=== PATIENT | female | born 1985 | race Two or more races ===

== ENCOUNTER → 2020-12-15 12:35 | Outpatient (CLI) | payer BC, SELFPAY ==
[2020-12-15 09:28] VITALS: BMI 35.9
[2020-12-15 15:09] LABS: Amphetamine Urine VISTA NEGATIVE (<1000 ng/mL); Barbiturate Urine VISTA NEGATIVE (< 200 ng/mL); Benzodiazepine Urine VISTA NEGATIVE (< 200 ng/mL); Cocaine Urine VISTA NEGATIVE (< 300 ng/mL); Ecstacy Urine VISTA NEGATIVE (< 500 ng/mL); Methadone Urine VISTA NEGATIVE (< 300 ng/mL); PCP Urine VISTA NEGATIVE (< 25 ng/mL); THC Urine VISTA NEGATIVE (< 50 ng/mL); Vista UDS pH Range 6
[2020-12-18 12:08] LABS: Chlamydia By Nucleic Acid AMP Negative (Negative)
[2020-12-18 14:43] LABS: Gonococcus By Nucleic Acid AMP Negative (Negative)
[2020-12-21 15:05] LABS: HPV APTIMA, High Risk Negative (Negative)
== END ==
PROVIDERS: Referring Provider Obstetrics & Gynecology; Visit Provider Obstetrics & Gynecology
DX: Z12.4 Encounter for screening for malignant neoplasm of cervix (principal); O09.90 Supervision of high risk pregnancy, unspecified, unspecified trimester
CPT/HCPCS: 80307; 87086; 87088; 87491; 87591; 87624; 88175; G0145

== ENCOUNTER → 2021-01-12 11:00 | Outpatient (CLI) | payer BC, SELFPAY ==
[2020-12-15 09:28] VITALS: BMI 35.9
[2021-01-12 11:33] LABS: Absolute Lymphocyte Count 1.84 X10^3/uL (0.83-4.51); Absolute Neutrophil Count 7.3 X10^3/uL (2.0-7.7); Basophil# 0.04 X10^3/uL; Basophil% 0.4 % (0-1); Eosinophil# 0.28 X10^3/uL; Eosinophils% 2.8 % (0-5); Hematocrit 39.3 % (37-47); Hemoglobin 12.9 g/dL (12.0-15.0); Lymphocyte # 1.84 X10^3/ul (4.0); Lymphocyte % 18.5 % (19-41); Mean Corp Hgb Conc 32.8 g/dL (32-36); Mean Corpuscular Hgb 30.9 pg (27.0-32.0); Mean Corpuscular Volume 94.2 fL (81-99); Mean Platelet Vol. 11.2 fl (6.2-12.0); Monocyte# 0.47 X10^3/uL; Monocyte% 4.7 % (0-10); NRBC Flagged by Analyzer 0 % (0-5); Neutrophil # 7.28 X10^3/uL (2.7-7.7); Neutrophil % 73.2 % (47-70); Platelet Count 193 K/mm3 (150-450); RBC Distribution Width CV 12.7 % (11.6-14.6); RBC Distribution Width SD 43.7 fl (35.1-43.9); Red Blood Count 4.17 M/mm3 (4.2-5.4)
[2021-01-12 11:41] LABS: Glucose Challenge Gest 1H 50g 148 mg/dL (70-140)
[2021-01-12 12:30] LABS: NATERA MAILED SPECIMEN
[2021-01-12 13:07] LABS: HIV - WCH Non-Reactive (Nonreactive); Hepatitis B Surface Antigen Non-Reactive (Nonreactive); Hepatitis C Antibody Non-Reactive (Nonreactive); Rubella IgG Reactive (Nonreactive)
== END ==
PROVIDERS: Referring Provider Obstetrics & Gynecology; Visit Provider Obstetrics & Gynecology
DX: Z34.81 Encounter for supervision of other normal pregnancy, first trimester (principal); Z31.430 Encounter of female for testing for genetic disease carrier status for procreative management; O09.90 Supervision of high risk pregnancy, unspecified, unspecified trimester; Z86.32 Personal history of gestational diabetes
CPT/HCPCS: 36415; 82950; 85025; 86703; 86762; 86803; 86850; 86900; 86901; 87340

== ENCOUNTER → 2021-01-17 10:03 | Outpatient (CLI) | payer BC, SELFPAY ==
[2020-12-15 09:28] VITALS: BMI 35.9
[2021-01-17 11:08] LABS: Glucose GTT-Gestation. Fasting 90 mg/dL (<105)
[2021-01-17 11:50] LABS: Glucose GTT-Gestational 1 Hr 169 mg/dL (<190)
[2021-01-17 13:30] LABS: Glucose GTT-Gestational 2 Hr 118 mg/dL (<165)
[2021-01-17 14:03] LABS: Glucose GTT-Gestational 3 Hr 55 L (<145)
== END ==
PROVIDERS: Referring Provider Nurse Practitioner Women's Health; Visit Provider Nurse Practitioner Women's Health
DX: O09.299 Supervision of pregnancy with other poor reproductive or obstetric history, unspecified trimester (principal); Z86.32 Personal history of gestational diabetes; Z3A.00 Weeks of gestation of pregnancy not specified
CPT/HCPCS: 36415; 82951; 82952

== ENCOUNTER → 2021-05-04 11:47 | Outpatient (CLI) | payer BC, SELFPAY ==
[2021-04-13 11:02] VITALS: BMI 35.3
[2021-05-04 12:56] LABS: Absolute Lymphocyte Count 2.35 X10^3/uL (0.83-4.51); Basophil# 0.04 X10^3/uL; Basophil% 0.3 % (0-1); Eosinophils% 1.5 % (0-5); Hematocrit 34.2 % (37-47); Hemoglobin 11.6 g/dL (12.0-15.0); Lymphocyte # 2.35 X10^3/ul (0.83-4.51); Lymphocyte % 17.6 % (19-41); Mean Corp Hgb Conc 33.9 g/dL (32-36); Mean Corpuscular Hgb 32.1 pg (27.0-32.0); Mean Corpuscular Volume 94.7 fL (81-99); Mean Platelet Vol. 10.7 fl (6.2-12.0); Monocyte# 0.62 X10^3/uL; Monocyte% 4.6 % (0-10); NRBC Flagged by Analyzer 0 % (0-5); Neutrophil # 10.04 X10^3/uL (2.7-7.7); Neutrophil % 75.3 % (47-70); Platelet Count 223 K/mm3 (150-450); RBC Distribution Width CV 13.6 % (11.6-14.6); RBC Distribution Width SD 47.3 fl (35.1-43.9); Red Blood Count 3.61 M/mm3 (4.2-5.4); White Blood Count 13.3 K/mm3 (4.4-11.0)
[2021-05-04 13:08] LABS: Glucose Challenge Gest 1H 50g 144 mg/dL (70-140)
== END ==
PROVIDERS: Obstetrics & Gynecology; Referring Provider Obstetrics & Gynecology; Visit Provider Obstetrics & Gynecology
DX: O09.90 Supervision of high risk pregnancy, unspecified, unspecified trimester (principal); Z13.1 Encounter for screening for diabetes mellitus; Z3A.00 Weeks of gestation of pregnancy not specified
CPT/HCPCS: 36415; 82950; 85025

== ENCOUNTER → 2021-05-09 10:01 | Outpatient (CLI) | payer BC, SELFPAY ==
[2021-04-13 11:02] VITALS: BMI 35.3
[2021-05-09 12:02] LABS: Glucose GTT-Gestational 1 Hr 179 mg/dL (<190)
[2021-05-09 12:12] LABS: Glucose GTT-Gestation. Fasting 90 mg/dL (<105)
[2021-05-09 13:21] LABS: Glucose GTT-Gestational 2 Hr 123 mg/dL (<165)
[2021-05-09 14:05] LABS: Glucose GTT-Gestational 3 Hr 87 L (<145)
== END ==
PROVIDERS: Visit Provider Obstetrics & Gynecology
DX: O09.299 Supervision of pregnancy with other poor reproductive or obstetric history, unspecified trimester (principal); Z86.32 Personal history of gestational diabetes; Z3A.00 Weeks of gestation of pregnancy not specified
CPT/HCPCS: 36415; 82951; 82952

== ENCOUNTER → 2021-07-01 11:14 | Outpatient (CLI) | payer BC, SELFPAY ==
--- NOTE | 2021-07-01 11:16 | US_ITS ---
STUDY: SECOND AND THIRD TRIMESTER OBSTETRICAL ULTRASOUND - LIMITED REASON FOR EXAM: Female, 36 years old growth LMP: 10/17/2020. PRIOR ULTRASOUND: None. TECHNIQUE: Transabdominal TECHNICAL QUALITY: Adequate. FINDINGS: There is a single intrauterine fetus. The fetus is in a cephalic presentation. There is demonstrated cardiac activity with a heart rate of 153 bpm. There is a normal amniotic fluid volume. The largest amniotic fluid pocket measures 8.3 cm. The amniotic fluid index (POLLO) is 23.3 cm. The placenta is posterior in location and is not low lying. There are Grade 3 placental changes. The cervical length was not measured due to the head positioning. BIOMETRY: BPD: 9.35 cm: 38 weeks, 1 days HC: 33.39 cm: 38 weeks, 2 days AC: 35.41 cm: 39 weeks, 3 days FL: 7.27 cm: 37 weeks, 2 days Age by LMP: 36 weeks, 5 days. CESIA by LMP: 07/24/2021. age by current US: 38 weeks, 2 days. CESIA by current US: 07/13/2021. Estimated weight: 3531 grams, +/- 516 grams, 93 percentile. US/OB Limited With Biometrics IMPRESSION: Single live uterine gestation with a mean gestational age of 38 weeks and 2 days. Electronically Signed: Braden Peralta MD at 15:12 EDT , Service support ,
== END ==
PROVIDERS: Referring Provider Obstetrics & Gynecology; Visit Provider Obstetrics & Gynecology
DX: O09.299 Supervision of pregnancy with other poor reproductive or obstetric history, unspecified trimester (principal); Z3A.00 Weeks of gestation of pregnancy not specified
CPT/HCPCS: 76816; 87081

== ENCOUNTER → 2021-07-08 11:38 | Outpatient (CLI) | payer BC, SELFPAY | PROVIDERS: Referring Provider Obstetrics & Gynecology; Visit Provider Obstetrics & Gynecology | DX: Z34.93 Encounter for supervision of normal pregnancy, unspecified, third trimester (principal) | CPT/HCPCS: 87635; U0005; U0003 ==

== ENCOUNTER 2021-07-12 08:30 | Inpatient (IN) | payer BC, SELFPAY ==
[2021-07-12] VITALS (73 sets, daily range): BP systolic 92–141; BP diastolic 51–89; PULSE 63–99; TEMP 36.3–37.2; O2SAT 94–100; BMI 34.8
[2021-07-12 08:28] LABS: ROM Internal Control Test YES-OK TO RESULT pt. (Internal QC)
[2021-07-12 08:31] LABS: ROM Patient Test POSITIVE (Negative)
[2021-07-12] MEDS: Lactated Ringers 1,000 ML 50 ML IV (09:10)
[2021-07-12 09:26] LABS: Absolute Lymphocyte Count 1.58 X10^3/uL (0.83-4.51); Absolute Neutrophil Count 11.1 X10^3/uL (2.0-7.7); Basophil# 0.03 X10^3/uL; Basophil% 0.2 % (0-1); Eosinophil# 0.11 X10^3/uL; Eosinophils% 0.8 % (0-5); Hematocrit 35.1 % (37-47); Hemoglobin 11.8 g/dL (12.0-15.0); Lymphocyte # 1.58 X10^3/ul (0.83-4.51); Lymphocyte % 11.6 % (19-41); Mean Corp Hgb Conc 33.6 g/dL (32-36); Mean Corpuscular Hgb 31.6 pg (27.0-32.0); Mean Corpuscular Volume 93.9 fL (81-99); Mean Platelet Vol. 11.2 fl (6.2-12.0); Monocyte% 5.2 % (0-10); NRBC Flagged by Analyzer 0 % (0-5); Neutrophil # 11.05 X10^3/uL (2.7-7.7); Neutrophil % 81.4 % (47-70); Platelet Count 220 K/mm3 (150-450); RBC Distribution Width CV 13.9 % (11.6-14.6); RBC Distribution Width SD 47.4 fl (35.1-43.9); Red Blood Count 3.74 M/mm3 (4.2-5.4); White Blood Count 13.6 K/mm3 (4.4-11.0)
[2021-07-12 10:09] LABS: Syphilis Antibodies Non-reactive
[2021-07-12] MEDS: Oxytocin 30 units/NS 500 ml 30 UNITS/500 ML IV.SOLN IV (11:50)
[2021-07-12] MEDS: Lactated Ringers 500 ML 999 ML IV ×2 (13:04→20:44)
[2021-07-12] MEDS: fentaNYL-bupivacaine (epidural) 100 ML BAG EPIDURAL ×2 (13:54→18:19)
[2021-07-12] MEDS: Lactated Ringers 1,000 ML 200 ML IV (19:12)
[2021-07-12] MEDS: Oxytocin 30 units/NS 500 ml 30 UNITS/500 ML IV.SOLN 334 UNITS IV (23:51)
--- NOTE | 2021-07-12 23:55 | HP.PCM.OB_ITS ---
HPI - General General Date of Admission: 07/12/21 HPI Narrative JUNIOR GRIFFITH, is a 36 F who presents with clear SROM 2 cm dilated, after several hours still 2 cm dilated. Maternal Data Information CESIA Calculator Estimated Delivery Date Method Current WG Current Estimate 07/24/21 LMP (Certain) 38w 2d Other Estimates 07/24/21 Ultrasound #1 38w 2d PFSH PFSH Medical History Abnormal Pap smear of cervix H/O gestational diabetes in prior , currently Home Medications multivitamin no.47-iron fum 27 mg-folate no.1 1 mg-dha 300 mg capsule 1 cap PO DAILY 12/07/20 [History Last Taken 07/11/21 20:00] famotidine 40 mg tablet 40 mg PO BID #60 tab 03/16/21 [Rx Last Taken 07/11/21 20:00] Allergy/AdvReac Type Severity Reaction Status Date / Time No Known Allergies Allergy Verified 07/08/21 11:25 Family History Mother Myocardial infarction Father Myocardial infarction Surgical History H/O LEEP Social History household members: family housing: house number of children: 2 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 Date Name GA/Weeks Outcome Route Bth Weight Gen Labor Lgth Anesthesia Del Locatn Provider FOB 05/24/15 Michael 41 live - full term vacuum 8lbs 5oz Male 12 hours epidural [facility] Ej 11/02/16 Fredo 40 live - full term 8lbs Male 12 lay rs epidural [facility] Delivery Date: 05/24/15 severe shoulder dystocia; 2nd degree laceration Rebecca Abdullahi Delivery Date: 11/02/16 GDM Rebecca Abdullahi Visit Details Expected Delivery Route/Plan IOL at 39 for hx shoulder dystocia Labor Preferences- CB/BF classes: no labor support person: Ej labor intervention preferences: wants frequent position changes during labor, open to standard interventions pain management options preferred: epidural - but would like lower dose cut cord/dad catch: maybe cord - almost fainted with first delivery : breast PP control planned: IUD at 6w PP visit discussed possible routes of delivery and associated risks: [] special requests: [] Plans covid vaccine: vaccinated flu vaccine: 07/01 tdap vaccine: given rhogam: na LARC form signed: declined. movement and labor precautions reviewed. Problem list reviewed and updated with the most current plan of care details and appropriate orders placed. Relevant counseling for the gestational age provided. Continue routine care and follow up unless otherwise noted in visit notes/problem list details OB Flowsheet Initial Weight: 200 lb Date -?-?-?-?-?-?-?-?-?-?-?-?- EGA Weight BP Urine Prot -?-?-?-?--?-?-?-?-?-?-?-?- Glucose FHR FuHt Pres Dilation -?-?-?-?-?-?-?-?-?-?--?-?- Effaced St Visit Note 12/15/20 -?-?-?-?-?-?-?-?-?-?-?-?- 8w 3d 203 lb (+3 lb) 128/78 -?-?-?-?-?-?-?-?-?-?-?-?- 185 -?-?-?-?-?-?-?-?-?-?-?-?- GP - CRL 17mm co nsistent with LMP. 01/19/21 -?-?--?-?-?-?-?-?-?-?-?-?- 13w 3d 200 lb 8 oz (+8 oz) 100/68 -?-?-?-?-?-?-?-?-?-?-?-?- 168 -?-?-?-?-?-?-?-?-?-?-?-?- MH-Brief US with active IUP. No VB, LOF. Heartburn persists with Pepcid-med list reviewed. Sched CL US at 16 wk [id number] 02/17/21 -?-?-?-?-?-?-?-?-?-?-?-?- 17w 4d 200 lb (+0 oz) 118/77 Negative -?-?-?-?-?-?-?-?-?-?-?-?- Negative 145 18 -?-?-?-?-?-?-?-?-?-?-?-?- SM- no vb lof fu anatomy ordered 03/16/21 -?-?-?-?-?-?-?-?-?-?-?-?- 21w 3d 199 lb 6 oz (-10 oz) 138/72 Negative -?-?-?-?-?-?-?-?-?-?-?-?- Negative 150 21 -?-?-?-?-?-?-?-?-?-?-?-?- GP - no LOF, VB, DFM, ctx. Having boy #3. Thinking of Jerrell Naqvi for name. Pepcid increased. 04/13/21 -?-?-?-?-?-?-?-?-?-?-?-?- 25w 3d 200 lb (+0 oz) 120/70 Negative -?-?-?-?-?-?-?-?-?-?-?-?- Negative 150 25 -?-?-?-?-?-?-?-?-?-?-?-?- GP - no LOF, VB, DFM, ctx. Discussed repeat 3h GCT. 05/12/21 -?-?-?-?-?-?-?-?-?-?-?-?- 29w 4d 195 lb 4 oz (-4 lb 12 oz) 116/70 Negative -?-?-?-?-?-?-?-?-?-?-?-?- Negative 135 29 -?-?-?-?-?-?-?-?-?-?-?-?- GP - no LOF, VB, DFM, ctx. Passed 3h GCT. LARC form signed. TDAP given. 05/27/21 -?-?-?-?-?-?-?-?-?-?-?-?- 31w 5d 197 lb (-3 lb) 116/74 Negative -?-?-?-?-?-?-?-?-?-?-?-?- Negative 140 32 -?-?-?-?-?-?-?-?-?-?-?-?- SM- no vb lof go od fm no reuglar ctx 06/10/21 -?-?-?-?-?-?-?-?-?-?-?-?- 33w 5d 197 lb 2 oz (-2 lb 14 oz) 118/78 Negative -?-?-?-?-?-?-?-?-?-?-?-?- Negative 130 33 -?-?-?-?-?-?-?-?-?-?-?-?- GP - no LOF, VB, DFM, ctx. Discussed growth at 36w due to hx of shoulder dystocia 06/23/21 -?-?-?-?-?-?-?-?--?-?-?-?- 35w 4d 199 lb 2 oz (-14 oz) 116/72 Negative -?-?-?-?-?-?-?-?-?-?-?-?- Negative 135 36 -?-?-?-?-?-?-?-?-?-?-?-?- SM no vb lof goo d fm some irregular paisn and nausea, nothing persistent 07/01/21 -?-?-?-?-?-?-?-?-?-?-?-?- 36w 5d 203 lb (+3 lb) 130/82 Negative -?-?-?-?-?-?-?-?-?-?-?-?- Negative 155 37 Cephalic 1 -?-?-?-?-?-?-?-?-?-?-?-?- 50 -2 GP - no LO F, VB, dFM, ctx. Growth US scheduled for today. GBS done. 07/08/21 -?-?-?-?-?-?-?-?-?-?-?-?- 37w 5d 206 lb 4 oz (+6 lb 4 oz) 130/86 Negative -?-?-?-?-?-?-?-?-?-?-?-?- Negative 140 38 Cephalic 2 -?-?-?-?-?-?-?-?-?-?-?-?- 50 -2 GP - no LO F, VB, DFM, ctx. IOL scheduled for 07/17 due to hx shoulder dystocia and suspected macrosomia 07/12/21 -?-?-?-?-?-?-?-?-?-?-?-?- 38w 2d 196 lb 10.437 oz (-3 lb 5.563 oz) 112/65 108/69 107/54 125/81 131/82 137/89 141/84 132/82 119/74 133/64 108/59 105/59 95/52 92/51 112/68 113/74 112/74 117/76 117/74 117/61 129/73 119/73 130/69 132/78 113/61 103/58 108/56 119/66 117/62 108/58 126/81 111/70 126/70 108/68 -?-?-?-?-?-?-?--?-?-?-?-?- -?-?-?-?-?-?-?-?-?-?-?-?- NST FHR Rate Baby A Baseline: 140 Variability:: Moderate Accelerations:: 15 x 15 Decelerations:: None NST Reactive:: Yes FHR Category:: Category I Uterine Activity:: q3-5 ROS Constitutional Constitutional: Reports systems reviewed and no addt'l complaints, except as documented ENT HEENT: Reports systems reviewed and no addt'l complaints, except as documented Cardiovascular Cardiovascular: Reports systems reviewed and no addt'l complaints, except as documented Respiratory/Chest Respiratory/Chest: Reports systems reviewed and no addt'l complaints, except as documented Gastrointestinal Gastrointestinal: Reports systems reviewed and no addt'l complaints, except as documented and nausea; Denies abdominal pain Genitourinary Genitourinary: Reports systems reviewed and no addt'l complaints, except as documented, contractions Details: present and frequency (regular ) and movement Details: present Musculoskeletal Musculoskeletal: Reports systems reviewed and no addt'l complaints, except as documented Integumentary Integumentary: Reports as per HPI Neurologic Neurologic: Reports systems reviewed and no addt'l complaints, except as documented Endocrine Endocrinology: Reports systems reviewed and no addt'l complaints, except as documented Vital Signs Vital Signs Vital Signs: 07/12/21 08:22 07/12/21 08:23 07/12/21 10:32 Temperature 97.7 F L 97.3 F L Temperature Source Temporal Temporal Pulse Rate 82 89 Blood Pressure 112/65 108/69 BP Systolic 112 108 BP Diastolic 65 69 Pulse Ox 98 07/12/21 11:16 07/12/21 11:53 07/12/21 11:54 Temperature 97.7 F L 99.0 F Temperature Source Temporal Temporal Pulse Rate 86 Blood Pressure 107/54 L BP Systolic 107 BP Diastolic 54 Pulse Ox 07/12/21 12:48 07/12/21 13:35 07/12/21 13:40 Temperature 97.5 F L Temperature Source Temporal Pulse Rate 81 81 88 Blood Pressure 125/81 H BP Systolic 125 BP Diastolic 81 Pulse Ox 99 99 07/12/21 13:41 07/12/21 13:45 07/12/21 13:47 Temperature Temperature Source Pulse Rate 86 90 98 Blood Pressure 131/82 H 137/89 H BP Systolic 131 137 BP Diastolic 82 89 Pulse Ox 100 07/12/21 13:50 07/12/21 13:52 07/12/21 13:55 Temperature Temperature Source Pulse Rate 99 87 86 Blood Pressure 141/84 H BP Systolic 141 BP Diastolic 84 Pulse Ox 99 99 07/12/21 13:57 07/12/21 14:00 07/12/21 14:01 Temperature 97.5 F L Temperature Source Pulse Rate 85 85 86 Blood Pressure 132/82 H 119/74 BP Systolic 132 119 BP Diastolic 82 74 Pulse Ox 98 07/12/21 14:05 07/12/21 14:06 07/12/21 14:10 Temperature Temperature Source Pulse Rate 82 88 84 Blood Pressure 133/64 H BP Systolic 133 BP Diastolic 64 Pulse Ox 94 98 07/12/21 14:12 07/12/21 14:15 07/12/21 14:17 Temperature Temperature Source Pulse Rate 80 80 75 Blood Pressure 108/59 L 105/59 L BP Systolic 108 105 BP Diastolic 59 59 Pulse Ox 97 07/12/21 14:20 07/12/21 14:25 07/12/21 14:30 Temperature Temperature Source Pulse Rate 81 75 90 Blood Pressure BP Systolic BP Diastolic Pulse Ox 98 97 97 07/12/21 14:35 07/12/21 14:40 07/12/21 14:45 Temperature Temperature Source Pulse Rate 67 69 72 Blood Pressure BP Systolic BP Diastolic Pulse Ox 96 96 95 07/12/21 14:49 07/12/21 14:50 07/12/21 14:55 Temperature Temperature Source Pulse Rate 72 67 76 Blood Pressure 95/52 L BP Systolic 95 BP Diastolic 52 Pulse Ox 95 96 07/12/21 15:00 07/12/21 15:05 07/12/21 15:10 Temperature Temperature Source Pulse Rate 65 69 76 Blood Pressure BP Systolic BP Diastolic Pulse Ox 94 96 96 07/12/21 15:15 07/12/21 15:19 07/12/21 15:20 Temperature Temperature Source Pulse Rate 69 68 65 Blood Pressure 92/51 L BP Systolic 92 BP Diastolic 51 Pulse Ox 96 95 07/12/21 15:25 07/12/21 15:30 07/12/21 15:42 Temperature 97.3 F L Temperature Source Temporal Pulse Rate 72 77 Blood Pressure BP Systolic BP Diastolic Pulse Ox 98 97 07/12/21 15:48 07/12/21 16:18 07/12/21 16:48 Temperature 97.5 F L Temperature Source Temporal Pulse Rate 77 71 68 Blood Pressure 112/68 113/74 112/74 BP Systolic 112 113 112 BP Diastolic 68 74 74 Pulse Ox 07/12/21 16:50 07/12/21 17:18 07/12/21 17:47 Temperature Temperature Source Pulse Rate 63 75 Blood Pressure 117/76 117/74 BP Systolic 117 117 BP Diastolic 76 74 Pulse Ox 98 07/12/21 18:14 07/12/21 18:18 07/12/21 19:26 Temperature 97.8 F Temperature Source Temporal Pulse Rate 77 71 82 Blood Pressure 117/61 129/73 H BP Systolic 117 129 BP Diastolic 61 73 Pulse Ox 99 100 07/12/21 19:27 07/12/21 20:02 07/12/21 20:07 Temperature 98.2 F Temperature Source Temporal Pulse Rate 86 85 Blood Pressure 119/73 BP Systolic 119 BP Diastolic 73 Pulse Ox 100 100 07/12/21 20:08 07/12/21 20:12 07/12/21 20:17 Temperature Temperature Source Pulse Rate 86 83 Blood Pressure 130/69 H 132/78 H BP Systolic 130 132 BP Diastolic 69 78 Pulse Ox 100 100 07/12/21 20:18 07/12/21 20:22 07/12/21 20:27 Temperature Temperature Source Pulse Rate 85 85 81 Blood Pressure 113/61 BP Systolic 113 BP Diastolic 61 Pulse Ox 100 100 07/12/21 20:29 07/12/21 20:32 07/12/21 20:51 Temperature 98.1 F Temperature Source Pulse Rate 81 74 Blood Pressure 103/58 L 108/56 L BP Systolic 103 108 BP Diastolic 58 56 Pulse Ox 99 07/12/21 21:30 07/12/21 21:50 07/12/21 21:51 Temperature 97.7 F L Temperature Source Temporal Pulse Rate 80 75 83 Blood Pressure 119/66 117/62 BP Systolic 119 117 BP Diastolic 66 62 Pulse Ox 99 98 07/12/21 21:54 07/12/21 21:56 07/12/21 22:00 Temperature Temperature Source Pulse Rate 76 83 82 Blood Pressure 108/58 L 126/81 H BP Systolic 108 126 BP Diastolic 58 81 Pulse Ox 99 07/12/21 23:04 07/12/21 23:06 07/12/21 23:26 Temperature 98.3 F Temperature Source Temporal Pulse Rate 70 67 82 Blood Pressure 111/70 126/70 H BP Systolic 111 126 BP Diastolic 70 70 Pulse Ox 99 100 Weight Weight: 196 lb 10.437 oz Body Mass Index (BMI) 34.8 Physical Exam Const alert, oriented x3 and healthy appearing Constitutional Narrative: uncomfortable with contractions HEENT normocephalic and moist oral mucous membranes Head and Scalp: atraumatic Neck full ROM, no lymphadenopathy, supple and thyroid normal General: trachea midline Thyroid: thyroid normal Lymph Lymphatic: no lymphadenopathy noted Chest inspection of chest normal Resp normal respiratory effort Cardio regular rate GI normal to inspection, nondistended, normoactive bowel sounds, soft to palpation and non-tender Inspection: gravid external exam normal Bimanual Exam - Vag & Uterus: uterus non-tender Manual OB Exam: estimated gestational size appropriate, presentation cephalic, dilated, effaced and station Extremity normal to inspection General Extremity: Negative for edema Skin no rashes or lesions noted Neuro deep tendon reflexes 2+ bilaterally Motor Exam: strength 5/5 throughout and clonus absent Psych mental status grossly normal Labs Labs Labs: Blood Type O POSITIVE Antibody Screen NEGATIVE Hct 35.1 % (37-47) L Hgb 11.8 g/dL (12.0-15.0) L Obstetrics US Syphilis Total Ab Non-reactive Rubella IgG Antibody Reactive (Nonreactive) Hep Bs Antigen Non-Reactive (Nonreactive) Neisseria gonorrhoeae DNA (JEFFERY) Negative (Negative) HIV 1&2 Antibody Non-Reactive (Nonreactive) Glucose 1 Hr 50 gm 144 mg/dL (70-140) H Assessment & Plan (1) Macrosomia: COMMENT: 93rd% (2) Smoking (tobacco) complicating , unspecified trimester: COMMENT: quit. (3) H/O shoulder dystocia in prior , currently : COMMENT: with 1st- 8# 5 ounces, 2nd without SD was 8 lbs. recommend IOL 39 weeks (4) Supervision of high risk , antepartum: COMMENT: PRR CESIA: 07/24/2021 Boy! Jerrell? PC: Fredo Rodriguez Spouse: Ej (5) H/O LEEP: COMMENT: 2019. Plan CL screening q2w starting at 16w.03/24 CL nl (6) H/O gestational diabetes in prior , currently : COMMENT: Normal 3hr GTT (7) : QUALIFIERS: Weeks of gestation: 36 weeks Qualified Code(s): Z3A.36 - 36 weeks gestation of COMMENT: genetic- low risk male and carrier- neg Sep afp screen. nl anatomy; GBS NEG (8) PROM (premature rupture of membranes): COMMENT: pitocin augmentation epidural PRN
--- NOTE | 2021-07-12 23:57 | EX.PCM.OBRPT ---
Assessment & Plan (1) PROM (premature rupture of membranes): COMMENT: pitocin augmentation epidural PRN (2) Macrosomia: COMMENT: 93rd% (3) Smoking (tobacco) complicating , unspecified trimester: COMMENT: quit. (4) H/O shoulder dystocia in prior , currently : COMMENT: with 1st- 8# 5 ounces, 2nd without SD was 8 lbs. recommend IOL 39 weeks (5) Supervision of high risk , antepartum: COMMENT: PRR CESIA: 07/24/2021 Boy! Jerrell? PC: Fredo Rodriguez Spouse: Ej (6) H/O LEEP: COMMENT: 2019. Plan CL screening q2w starting at 16w.03/24 CL nl (7) H/O gestational diabetes in prior , currently : COMMENT: Normal 3hr GTT (8) : QUALIFIERS: Weeks of gestation: 36 weeks Qualified Code(s): Z3A.36 - 36 weeks gestation of COMMENT: genetic- low risk male and carrier- neg Sep afp screen. nl anatomy; GBS NEG (9) Vaginal delivery: COMMENT: SM PROM 38 boy Jerrell Maternal Data Information CESIA Calculator Estimated Delivery Date Method Current WG Current Estimate 07/24/21 LMP (Certain) 38w 2d Other Estimates 07/24/21 Ultrasound #1 38w 2d Vaginal Delivery Operative Information Date of Procedure: 07/12/21 Pre-Operative Diagnosis: IAL Post-Operative Diagnosis: same Surgery / Procedure Performed: Spontaneous Vaginal Delivery Type of Anesthesia: Epidural Special Medications: none Estimated Blood Loss: 100 Fluids Replaced: crystalloid Findings Description of Procedure: Patient began pushing and delivered the head in the BALTAZAR presentation. The head was delivered atraumatically . The anterior and posterior shoulders delivered without complication followed by the rest of the infant and the was placed on the maternal abdomen. Delayed cord clamping was employed for approximately 60 seconds. Cord was clamped and cut and gentle traction was applied to the cord and the placenta delivered spontaneously immediately following it was noted to be intact with three-vessel cord. The perineum and vagina were inspected and noted to have no laceration. EBL was 100 cc. Patient and tolerated delivery well. Presentation: BALTAZAR Amniotic Membrane Rupture Type: Artificial Amniotic Fluid Description: Clear Placental Delivery Description: Spontaneous Placenta Disposition: [facility] Cord Vessel Description: 3 Vessels Cord Entanglement: None A Gender: Male Delayed Cord Clamping: Yes Post Vaginal Delivery Medications Given After Delivery: IV Pitocin Episiotomy Description: None Laceration: None Complication Complications: None Procedures Urinary/Genital [id number]: [id number] Vaginal Delivery [facility]
--- NOTE | 2021-07-12 23:58 | PCM.DC ---
Discharge Instructions Diet Discharge Diet: No restrictions Activity Discharge Activity: Return to Normal Activity, May Not Drive (while taking narcotic pain medications.) and May Shower May resume sexual activity in: 4-6 weeks Dressing / Incision Call your doctor if your incision/area has: Continuous Slow Oozing, Sudden Increased Bleeding, Increased Pain/ Swelling, Increased Redness and Foul Smelling Discharge Follow Up Care Please Follow Up With: Moira Esparza MD When: Call [phone] to make an appointment with your doctor in 6 weeks. If you had elevated blood pressure or 4th degree laceration, you will need to be seen in 2 weeks. Test Results: Test results from this visit will be discussed in further detail at your follow-up appointment, if applicable. Discharge Plan Admission Admit Date/Time: 07/12/21 08:30 Primary Reason for Your Visit: vaginal delivery Attending Provider: Moira Esparza Primary Care Provider: Care Physician,Suzie Primary Discharge Orders/Prescriptions Prescriptions: No Action PNV-DHA 27 mg iron-1 mg -300 mg capsule 1 cap PO DAILY RF: 0 famotidine [Pepcid] 40 mg tablet 40 mg PO BID Qty: 60 RF: 6 Referrals / Follow Up: Care Physician,No Primary [Primary Care Provider] - Disposition Disposition (needs filled in before D/C Order can be placed): Home, Self Care
[2021-07-13] VITALS (36 sets, daily range): BP systolic 96–124; BP diastolic 50–74; PULSE 66–97; RESP 16; TEMP 36.4–37; O2SAT 95–100
[2021-07-13] MEDS: Naproxen 500 MG Tablet PO ×3 (00:23→19:59)
[2021-07-13] MEDS: Acetaminophen 500 MG Tablet 1000 MG PO ×2 (06:56→15:52)
--- NOTE | 2021-07-13 08:01 | PN.OBGYN_ITS ---
Subjective Subjective Patient doing well without complaints. Tolerating PO. Ambulating and voiding without difficulty. Feeding well. Denies chest pain, shortness of breath, calf pain/swelling, fevers, chills, lightheadedness. Objective Data Objective Data Vital Signs: Vital Signs Temp Pulse Resp BP Pulse Ox 97.9 F 75 16 109/50 L 98 07/13/21 07:44 07/13/21 07:44 07/13/21 07:44 07/13/21 07:44 07/13/21 04:15 Oxygen Delivery Method Room Air Weight: 196 lb 10.437 oz Body Mass Index (BMI) 34.8 Intake & Output: Intake and Output for Last 24 Hours 07/11/21 07/12/21 07/13/21 23:59 23:59 23:59 Intake Total 3719.91 / 3719.91 500 / 500 Output Total 500 / 500 950 / 950 Balance 3219.91 / 3219.91 -450 / -450 Lab / Micro Data Result Diagrams: 07/12/21 09:10 Labs: Laboratory Results - last 24 hr 07/12/21 08:05: Vag Amniotic Fld Detect POSITIVE H 07/12/21 09:10: WBC 13.6 H, RBC 3.74 L, Hgb 11.8 L, Hct 35.1 L, MCV 93.9, MCH 31.6, MCHC 33.6, RDW Std Deviation 47.4 H, RDW Coeff of [place] 13.9, Plt Count 220, MPV 11.2, Immature Gran % (Auto) 0.800, Neut % (Auto) 81.4 H, Lymph % (Auto) 11.6 L, [place] % (Auto) 5.2, Eos % (Auto) 0.8, Baso % (Auto) 0.2, Absolute Neuts (auto) 11.1 H, Absolute Lymphs (auto) 1.58, Nucleated RBC % 0 07/12/21 09:10: Blood Type O POSITIVE, Antibody Screen NEGATIVE 07/12/21 09:10: Syphilis Total Ab Non-reactive Physical Exam Const alert and oriented x3 HEENT normocephalic Eyes PERRL Neck full ROM Resp normal respiratory effort GI soft to palpation GI Narrative: FF below U Assessment & Plan (1) Vaginal delivery: COMMENT: SM PROM 38 boy Jerrell PLAN: s/p PPD # 1 1. routine post delivery care 2. breast feeding- support given 3. rh positive 4. rubella immune
[2021-07-14 00:25] VITALS: BP 104/47; PULSE 68; RESP 18; TEMP 36.4; O2SAT 96
[2021-07-14] MEDS: Acetaminophen 500 MG Tablet 1000 MG PO ×2 (00:30→10:35)
[2021-07-14] MEDS: Naproxen 500 MG Tablet PO (04:04)
[2021-07-14 04:15] VITALS: BP 108/40; PULSE 67; RESP 16; TEMP 36.1; O2SAT 96
--- NOTE | 2021-07-14 07:56 | PCM.PN.OB ---
Subjective Subjective Patient doing well without complaints. Tolerating PO. Ambulating and voiding without difficulty. Feeding well. Denies chest pain, shortness of breath, calf pain/swelling, fevers, chills, lightheadedness. Objective Data Objective Data Vital Signs: Vital Signs Temp Pulse Resp BP Pulse Ox 96.9 F L 67 16 108/40 L 96 07/14/21 04:15 07/14/21 04:15 07/14/21 04:15 07/14/21 04:15 07/14/21 04:15 Oxygen Delivery Method Room Air Weight: 196 lb 10.437 oz Body Mass Index (BMI) 34.8 Intake & Output: Intake and Output for Last 24 Hours 07/12/21 07/13/21 07/14/21 23:59 23:59 23:59 Intake Total 3719.91 / 3719.91 500 / 500 Output Total 500 / 500 950 / 950 Balance 3219.91 / 3219.91 -450 / -450 Lab / Micro Data Result Diagrams: 07/12/21 09:10 Physical Exam Const alert and oriented x3 HEENT normocephalic Eyes PERRL Neck full ROM Resp normal respiratory effort GI soft to palpation GI Narrative: FF below U Assessment & Plan (1) Vaginal delivery: COMMENT: SM PROM 38 boy Jerrell PLAN: s/p PPD # 1. routine post delivery care 2. breast feeding- support given 3. rh positive 4. rubella immune 5. home today
[2021-07-14 08:10] VITALS: BP 120/50; PULSE 55; RESP 16; TEMP 36.2
[2021-07-14 13:03] VITALS: BP 116/56; PULSE 55; RESP 16; TEMP 36.3
== END 2021-07-14 14:15 | disposition home or self-care (01) | DRG 807 ==
LOC: WPOUT 08:32 → WP 08:32
PROVIDERS: Admitting Provider Obstetrics & Gynecology; Referring Provider Obstetrics & Gynecology; Visit Provider Obstetrics & Gynecology
DX: O42.92 Full-term premature rupture of membranes, unspecified as to length of time between rupture and onset of labor (principal); Z37.0 Single live birth; O24.429 Gestational diabetes mellitus in childbirth, unspecified control; Z3A.39 39 weeks gestation of pregnancy; Z82.49 Family history of ischemic heart disease and other diseases of the circulatory system; Z87.891 Personal history of nicotine dependence
CPT/HCPCS: 59025; 59050; 84112; 85025; 86780; 86850; 86900; 86901; 99218; J7120; G0378